=== PATIENT | female | born 1960 | race African-American/Black ===

== ENCOUNTER 2019-05-28 11:01 | Outpatient (CLI) | payer OTHER ==
--- NOTE | 2019-05-30 00:36 | XRAY Report ---
Reason: R SHOULDER PX S/P FALL 6 WEEKS AGO Procedure Date: 05/28/2019 Accession Number: [id number] / [id number] Procedure: XR - Shoulder 3 View RT CPT Code: FULL RESULT: EXAM: RIGHT SHOULDER RADIOGRAPHY EXAM DATE: 05/28/2019 11:51 AM. CLINICAL HISTORY: R SHOULDER PX S/P FALL 6 WEEKS AGO. COMPARISON: None. TECHNIQUE: 4 views. FINDINGS: Bones: No acute fracture or suspicious bone lesion. Joints: The glenohumeral and acromioclavicular joints are unremarkable aside from mild degenerative changes. Soft tissues: The partially imaged lung is unremarkable. IMPRESSION: No acute radiographic abnormalities. [facility]
--- NOTE | 2019-05-30 00:37 | XRAY Report ---
Reason: FELL DOWN STAIRS 1.5 MOS AGO Procedure Date: 05/28/2019 Accession Number: [id number] / [id number] Procedure: XR - Pelvis 1 View CPT Code: FULL RESULT: EXAM: PELVIS RADIOGRAPHY EXAM DATE: 05/28/2019 11:47 AM. CLINICAL HISTORY: FELL DOWN STAIRS 1. 5 MOS AGO. COMPARISON: None. TECHNIQUE: 1 view. FINDINGS: Bones: No acute fractures. Joints: The visualized hip, pubis symphysis, and sacroiliac joints are preserved. No subluxation. Soft Tissues: Multiple calcifications in the pelvis likely reflect lumbar list. IMPRESSION: No acute radiographic abnormalities. [facility]
== END 2019-05-28 11:02 | disposition home or self-care (01) ==
LOC: DI 11:01
PROVIDERS: ATTEND Student in an Organized Health Care Education/Training Program
DX: M25.511 Pain in right shoulder (principal); R10.2 Pelvic and perineal pain
CPT/HCPCS: 72170

== ENCOUNTER 2019-06-10 08:22 | Outpatient (CLI) | payer OTHER ==
[2019-06-10] MEDS ORDERED: BUFFERED LIDOCAINE 10 ML SYRINGE ONE (08:37)
[2019-06-10] MEDS ORDERED: GADOPENTETATE DIMEGLUMINE 5 ML VIAL IVP ONE (08:38)
[2019-06-10] MEDS ORDERED: IOTHALAMATE MEGLUMINE 50 ML VIAL ONE (08:38)
--- NOTE | 2019-06-10 14:11 | MRI Report ---
Reason: RT SHOULDER PAIN, UNABLE TO ABDUCT GREATER THAN 45 Procedure Date: 06/10/2019 Accession Number: [id number] / [id number] Procedure: MRI - Arthrogram Shoulder RT CPT Code: FULL RESULT: EXAM: RIGHT SHOULDER MRI ARTHROGRAM WITH CONTRAST EXAM DATE: 06/10/2019 10:32 AM. CLINICAL HISTORY: Right shoulder pain, unable to abduct greater than 45. COMPARISON: SHOULDER 3 VIEW RT 05/28/2019 11:31 AM. TECHNIQUE: Multiplanar, multisequence T1-weighted and fluid-sensitive sequences of the shoulder after an arthrographic injection of dilute gadolinium, dictated under a separate exam. Other: None. FINDINGS: Acromioclavicular Region: The acromion is type II unipartite. AC joint is moderately osteoarthritic. Some synovial hypertrophic changes are present. The coracoacromial and coracoclavicular ligaments are intact. Generous amount of contrast material is seen in the bursa. Glenohumeral Region: Mild superior subluxation of the humeral head with respect to the bony glenoid. Some debris is seen in the bursa. The articular cartilage is unremarkable. The glenohumeral ligaments and joint capsule are unremarkable. Bone Marrow: No fracture, marrow edema or bone lesions. Labrum: There is a small focal sublabral hole on series 501 image 13, no discrete tears. Biceps Tendon: The long head of the biceps tendon and biceps astrid are intact. Musculature/Rotator Cuff: Full-thickness tear at the anterior distal supraspinatus fibers allows contrast material to flow easily into the bursa. Remainder of the supraspinatus, the infraspinatus and subscapularis appear unremarkable. Teres minor also normal. No proximal muscular edema or fatty atrophy is seen. Other: The subcutaneous tissues are unremarkable. IMPRESSION: 1. Type II unipartite undersurface osseous acromion shape. AC joint is mildly osteoarthritic. Some synovial hypertrophic changes are present. Contrast material also is seen within the bursa secondary to a full-thickness tear at the anterior distal supraspinatus fibers. Focal defect measures about 1.5 cm. Remainder of the rotator cuff appears unremarkable. 2. Labrum shows a small focal sublabral hole. No focal discrete tears. 3. No other worrisome imaging features. [facility]
--- NOTE | 2019-06-10 15:37 | XRAY Report ---
Reason: RT SHOULDER PAIN, UNABLE TO ABDUCT GREATER THAN 45 Procedure Date: 06/10/2019 Accession Number: [id number] / [id number] Procedure: FL - Arthrogram Needle Placement CPT Code: FULL RESULT: EXAM: RIGHT SHOULDER ARTHROGRAPHIC INJECTION WITH FLUOROSCOPIC GUIDANCE EXAM DATE: 06/10/2019 09:39 AM. CLINICAL HISTORY: Right shoulder pain, unable to abduct greater than 45. COMPARISON: ARTHROGRAM SHOULDER RT 06/10/2019 9:48 AM. TECHNIQUE: The risks, benefits, and alternatives of the procedure were discussed with the patient. All questions were answered. Written and verbal consent were obtained. The glenohumeral joint was marked under fluoroscopy and prepped and draped in a sterile manner. Local anesthesia was performed with 1% lidocaine. A 22-gauge needle was then inserted into the glenohumeral joint. 10 mL of a solution containing 25% 1% lidocaine, 25% iodinated contrast, and a 1:200 dilution of gadolinium contrast in sterile saline was then injected. The needle was removed without immediate complication. Other: None. Fluoroscopy Time: 1 second. Number of Images: 7. FINDINGS: Bones and joints: No fracture or subluxation. Injection: Fluoroscopic images demonstrate needle placement and contrast in the glenohumeral joint. No contrast extravasation outside of the glenohumeral joint. IMPRESSION: Successful fluoroscopically-guided arthrographic injection of the shoulder. [facility]
== END 2019-06-10 08:23 | disposition home or self-care (01) ==
LOC: DI 08:22
PROVIDERS: ATTEND Student in an Organized Health Care Education/Training Program
DX: M75.101 Unspecified rotator cuff tear or rupture of right shoulder, not specified as traumatic (principal); M19.011 Primary osteoarthritis, right shoulder
CPT/HCPCS: 23350; 73222; 77002; Q9961

== ENCOUNTER 2019-06-26 13:16 | Outpatient (CLI) | payer OTHER ==
[2019-06-26 14:27] LABS: CREATININE 0.9 mg/dL (0.4-1.0)
[2019-06-26] MEDS ORDERED: IOVERSOL 320 50 ML VIAL PO ONE (15:21)
[2019-06-26] MEDS ORDERED: IOVERSOL 320 100 ML VIAL IVP ONE (15:21)
--- NOTE | 2019-06-27 05:17 | CT Report ---
Reason: PELVIC AND PERINEAL PAIN Procedure Date: 06/26/2019 Accession Number: [id number] / [id number] Procedure: CT - Abdomen/Pelvis W CPT Code: FULL RESULT: EXAM: CT ABDOMEN AND PELVIS EXAM DATE: 06/26/2019 03:04 PM. CLINICAL HISTORY: PELVIC AND PERINEAL PAIN. COMPARISONS: None. TECHNIQUE: Routine helical CT imaging was performed through the abdomen and pelvis. IV contrast: OPTI 320 90ML. Enteric contrast: Yes. Reconstructions: Coronal and sagittal. In accordance with CT protocol optimization, one or more of the following dose reduction techniques were utilized for this exam: automated exposure control, adjustment of mA and/or KV based on patient size, or use of iterative reconstructive technique. FINDINGS: Lung Bases: Unremarkable. Liver: Incidental calcified granuloma in the right lobe. Gallbladder/Bile Ducts: Unremarkable. Spleen: Normal. Pancreas: Normal. Adrenal Glands: Normal. Kidneys: Normal. No masses or hydronephrosis. Peritoneal Cavity/Bowel: Normal. No free fluid, free air or adenopathy. No masses or acute inflammatory process. Pelvic Organs: Normal. The bladder and visualized pelvic organs are within normal limits. Vasculature: No aneurysms or other significant abnormality. Bones: No significant abnormality. Other: None. IMPRESSION: Normal abdomen and pelvis CT. No evident etiology for patient's pain. [facility]
== END 2019-06-26 13:17 | disposition home or self-care (01) ==
LOC: LAB 13:16
PROVIDERS: ATTEND Student in an Organized Health Care Education/Training Program
DX: R10.2 Pelvic and perineal pain (principal)
CPT/HCPCS: 36415; 74177; 82565; 84520; Q9967